=== PATIENT | male | born 1995 | race Caucasian/White ===

== ENCOUNTER 2020-02-14 01:36 | Emergency (ER) | payer SELFPAY ==
[~2020-02-14] VITALS: Ht 167.6 cm; Wt 108.9 kg
[2020-02-14 01:36] VITALS: BP 125/93
--- NOTE | 2020-02-14 01:38 | NUR ---
pt in wheelchair to er bed 09
--- NOTE | 2020-02-14 01:49 | NUR ---
24M FALL X 1 HOUR AGO.3CM LACERATION TO FOREHEARD, ACTIVELY BLEEDING. OBSERVED BLEEDING INSIDE THE MOUTH. PT ADMITS TO DRINKING WINE AND ALCOHOL. -LOC, +SLURRED SPEECH, A/OX4, AROUSABLE TO VOICE. MEDHX- NONE NKA
--- NOTE | 2020-02-14 02:28 | NUR ---
PT RETURNED TO BED #9 VIA W/C
[2020-02-14] MEDS ORDERED: NACL 0.9% 1,000 ML IV ONE (02:50)
--- NOTE | 2020-02-14 02:50 | NUR ---
IV 20G PLACED IN L AC. IV SITE IS PATENT. LABS DRAWN AND GIVEN TO SANITATION LEAD. Addendum: 02/14/20 at 0301 by GLENN Shlomo PRABHAKAR
[2020-02-14] MEDS ORDERED: LIDOCAINE/EPI 1% 1:100000 20 ML VIAL INJ ONE ×2 (02:53→06:30)
--- NOTE | 2020-02-14 03:01 | NUR ---
EKG BEING PERFORMED AT BEDSIDE.
[2020-02-14 03:04] LABS: BASOPHILS # (AUTO) 0.1 K/uL (0.00-0.22); BASOPHILS % (AUTO) 1.5 % (0.0-2.0); EOSINOPHILS # (AUTO) 0.4 K/uL (0-0.4); HEMATOCRIT 43.2 % (36-52); HEMOGLOBIN 14.7 g/dL (12.0-18.0); LYMPHOCYTES # (AUTO) 2.3 K/uL (2.0-11.5); LYMPHOCYTES % (AUTO) 32.6 % (20.5-51.1); MEAN CORPUSCULAR HEMOGLOBIN 31 pg (27-31); MEAN CORPUSCULAR HGB CONC 34 g/dL (33-37); MEAN CORPUSCULAR VOLUME 91.5 fL (80-94); MONOCYTES # (AUTO) 0.4 K/uL (0.8-1.0); MONOCYTES % (AUTO) 5.1 % (1.7-9.3); NEUTROPHILS # (AUTO) 3.9 K/uL (1.8-7.7); NEUTROPHILS % (AUTO) 54.8 % (42.2-75.2); PLATELET COUNT (AUTO) 329 K/uL (140-450); RED BLOOD CELL COUNT(AUTO) 4.72 MIL/uL (4.20-6.10); RED CELL DISTRIBUTION WIDTH 13.5 % (11.6-13.7); WHITE BLOOD COUNT (AUTO) 7.1 K/uL (4.8-10.8)
--- NOTE | 2020-02-14 03:08 | NUR ---
AT BEDSIDE. SUTURE SETUP AT BEDSIDE.
[2020-02-14 03:20] LABS: ALBUMIN 4.4 g/dL (3.4-5.0); CARBON DIOXIDE 24.8 mmol/L (21-32); CREATININE 1.3 mg/dL (0.6-1.3); POTASSIUM 3.8 mmol/L (3.5-5.1); TOTAL BILIRUBIN 0.2 mg/dL (0.0-1.0)
[2020-02-14] MEDS ORDERED: BACITRACIN OINT 500 UNITS/GM PKT TP ONE ×2 (03:42→06:30)
--- NOTE | 2020-02-14 04:05 | NUR ---
UA COLLECTED VIA URINAL AT BEDSIDE. UA SENT TO LAB.
[2020-02-14 04:30] LABS: BARBITURATE, URINE NEGATIVE ng/ml (NEG <=200); BENZODIAZEPINE, URINE NEGATIVE ng/mL (NEG <=200); CANNABINOID, URINE NEGATIVE ng/mL (NEG <=50); COCAINE, URINE NEGATIVE ng/mL (NEG <=300); OPIATE, URINE NEGATIVE ng/mL (NEG <=2000); PHENCYCLIDINE SCREEN,URINE NEGATIVE ng/mL (NEG <=25)
--- NOTE | 2020-02-14 05:06 | NUR ---
PT IN BED WITH EYES CLOSED, VISIBLE CHEST RISE AND FALL. AROUSABLE TO VOICE. NO FURTHER NEEDS AT THIS TIME. BED LOWEST AND LOCKED, RAILS X 2
--- NOTE | 2020-02-14 05:59 | NUR ---
pt resting with eyes closed, arousable to voice. no further needs at this time. bed lowest and locked, rails x2
--- NOTE | 2020-02-14 06:29 | NUR ---
PT REMAINS ASLEEP-- ALERT TO VERBAL STIMULI. NO NEW QUESTIONS OR CONCERNS.
--- NOTE | 2020-02-14 07:11 | NUR ---
REPORT RECEIVED FROM YOHANNES THOMPSON.
--- NOTE | 2020-02-14 07:23 | NUR ---
PT IS AWAKE, A&OX3, AND STATES HE DOES NOT HAVE ANY PAIN BUT FEEL THIRSTY AT THIS TIME. WATER PROVIDED TO PT. Addendum: 02/14/20 at 0755 by QUE CLEAR SPEECH WITH FULL SENTENCES.
--- NOTE | 2020-02-14 08:29 | NUR ---
IV removed, catheter intact and site benign. Applied folded 4x4 gauze and tape to stop bleeding.
[2020-02-14 08:34] VITALS: BP 119/85
--- NOTE | 2020-02-14 08:34 | NUR ---
Patient discharged with v/s stable. Written and verbal after care instructions given and explained. Patient verbalized understanding. Ambulatory with steady gait. All questions addressed prior to discharge. Advised to follow up with PMD. Assisted pt to walked out of the ER and sent pt to his girlfriend and a male friend.
== END 2020-02-14 07:38 | disposition home or self-care (01) ==
LOC: MED 01:36
DX: S01.21XA Laceration without foreign body of nose, initial encounter (principal); F10.120 Alcohol abuse with intoxication, uncomplicated; W18.30XA Fall on same level, unspecified, initial encounter; Y93.89 Activity, other specified; Y92.89 Other specified places as the place of occurrence of the external cause; Y99.8 Other external cause status; Y90.9 Presence of alcohol in blood, level not specified
CPT/HCPCS: 12013; 36415; 70450; 80053; 80305; 82550; 84484; 85025; 93005; 99285; J2001; J7030